=== PATIENT | female | born 1985 | race Asian ===

== ENCOUNTER 2018-01-09 22:30 | Inpatient (IN) | payer OTHER ==
--- NOTE | 2018-01-09 23:39 | HP ---
General Information - General Information Maternal Age: 32 Grav: 2 Para: 1 SAB: 0 IEA: 0 Estimated Due Date: 01/31/18 Determined By: LMP Gestational Age in Weeks and Days: 36 Weeks and 6 Days Maternal Blood Type and Rh: A Positive - Results this Serology/RPR Result: Non-Reactive Rubella Result: Immune HBsAg Result: Negative HIV Result: Negative GBS Culture Result: Negative Past Medical History Delivery History: Hx Uncomplicated Vaginal Delivery Pertinent Past Medical History: See Records - Non-immune to varicella Pertinent Past Surgical History: None Pertinent Family History: Non-Contributory - Antepartal Records Antepartal Records: Reviewed, Uncomplicated Review of Systems Constitutional: Uncomfortable - appears uncomfortable with contractions CV Complaint: No Respiratory: Shortness of Breath: No Genitourinary: No Leaking Fluid Musculoskeletal: Contractions Neurological: No Headache, No Visual Changes Movement: Normal Exam Allergies/Adverse Reactions: Allergies No Known Allergies Allergy (Verified 01/09/18 23:16) T 97.8; BP 108/79, P 88, R 20 - Measurements Height: 5 ft 4 in Weight: 141 lb Weight in lbs: 141 Body Mass Index (BMI): 24.2 Pre- Weight: 110 lb Weight Gained This : 31 lbs and 0 ozs - Exam Abdomen: No Upper Quadrant Pain Breast: Breast Exam Deferred CVA: No CVA Tenderness Extremities: No Edema Heart: Normal Rhythm/Heart Sounds HEENT: No Significant Findings Lungs: Clear Bilaterally Rectal: Rectal Exam Deferred Reflexes: DTR 2+ Thyroid: No Thyromegaly - Abdominal Exam Abdomen Exam: Non-Tender, Fundal Height Consistent with Dates - Ultrasound/Biophysical Profile Ultrasound Status: Not Done Targeted Exam Findings See L&D Outpatient Visit Provider Note for Findings: Yes Estimated Weight: 5.5-6# Cervical Exam: 4cm Effacement: 90% Station: -1 Presenting Part: Vertex Membrane Status: Bulging Bleeding/Discharge: Bloody Show EFM Findings - External Monitor Findings Baseline Heart Rate: 140 External Monitor Findings: Accelerations Present, No Pattern of Variable or Late Decelerations, Variability Moderate, Baseline Stable Contractions: Regular - 5-6 minutes, Moderate, 45-90 Seconds Assessment/Plan - Reason for Visit Reason for Visit: Pt c/o painful uterine contractions - Obstetrical Risk Factors Obstetrical Risk Factors: - 36 6/7 - Plan Plan: Observe, Early Labor, IV Hydration - Date/Time of Admission Date of Admission: 01/09/18 Time of Admission: 23:45
[2018-01-09 23:49] LABS: ABS Basophils 0 10^3/ul (0-0.2); ABS Eosinophils 0.1 10^3/ul (0-0.6); ABS Lymphocytes 1.6 10^3/ul (1.0-4.8); ABS Monocytes 0.9 10^3/ul (0-0.8); ABS Neutrophils 6.3 10^3/ul (1.5-7.7); ABS Nucleated RBC 0 10^3/ul; Eosinophil % 0.9 % (0-6); Hematocrit 33 % (35-47); Mean Corpuscular HGB Conc 34 g/dl (31-36); Mean Corpuscular Hemoglobin 30 pg (27-31); Mean Corpuscular Volume 89 fL (80-97); Mean Platelet Volume 8.3 um3 (7.4-10.4); Nucleated Red Blood Cells % 0; Platelet Count 270 10^3/ul (150-450); Red Blood Count 3.69 10^6/ul (4.0-5.4); Red Cell Distribution Width 13 % (10.5-15); White Blood Count 8.9 10^3/ul (3.5-10.8)
[2018-01-10] MEDS ORDERED: OBEPIDURAL* 0 ML EPIDURAL ONE (00:35)
[2018-01-10] MEDS ORDERED: fentaNYL* 50 MCG/ML 2 ML VIAL (100 MCG VIAL) ONE (00:41)
[2018-01-10] MEDS ORDERED: OBEPIDURAL* 250 ML EPIDURAL ONE (01:07)
[2018-01-10] MEDS ORDERED: Sodium Citrate/Citric Acid* 15 ML UDC PO PRN (01:19)
[2018-01-10] MEDS ORDERED: Phenylephrine IV* 40 MCG/ML 10 ML SYRINGE IV PUSH PRN ×2 (01:19)
[2018-01-10] MEDS ORDERED: Famotidine TAB* 20 MG PO PRN (01:19)
[2018-01-10] MEDS ORDERED: OBEPIDURAL* 250 ML EPIDURAL SCH (02:00)
[2018-01-10] MEDS ORDERED: Oxytocin in LR* 0 UNITS/0 ML BAG IVPB ONE (05:48)
[2018-01-10] MEDS ORDERED: Glycerin ADULT SUPP PR PRN (07:47)
[2018-01-10] MEDS ORDERED: Dibucaine 1% 28.35 GM TUBE PR PRN (07:47)
[2018-01-10] MEDS ORDERED: Witch Hazel PAD* JAR TOPICAL PRN (07:47)
[2018-01-10] MEDS ORDERED: Acetaminophen TAB* 325 MG PO PRN (07:47)
[2018-01-10] MEDS: Ibuprofen TAB* 600 MG PO PRN ×3 (08:22→21:07)
[2018-01-10] MEDS: Docusate CAP* 100 MG PO SCH ×3 (08:22→21:07)
[2018-01-10] MEDS ORDERED: Simethicone TAB* 80 MG TAB.CHEW PO SCH (08:30)
[2018-01-11] MEDS: Ibuprofen TAB* 600 MG PO PRN ×3 (04:15→17:29)
[2018-01-11 06:14] LABS: ABS Basophils 0 10^3/ul (0-0.2); ABS Eosinophils 0.1 10^3/ul (0-0.6); ABS Lymphocytes 1.7 10^3/ul (1.0-4.8); ABS Neutrophils 6.9 10^3/ul (1.5-7.7); ABS Nucleated RBC 0 10^3/ul; Eosinophil % 1.4 % (0-6); Hematocrit 29 % (35-47); Hemoglobin 10.1 g/dl (12.0-16.0); Lymphocyte % 17.4 % (25-47); Mean Corpuscular HGB Conc 35 g/dl (31-36); Mean Corpuscular Hemoglobin 31 pg (27-31); Mean Corpuscular Volume 88 fL (80-97); Mean Platelet Volume 8.9 um3 (7.4-10.4); Nucleated Red Blood Cells % 0; Platelet Count 218 10^3/ul (150-450); Red Blood Count 3.31 10^6/ul (4.0-5.4); Red Cell Distribution Width 13 % (10.5-15); White Blood Count 9.7 10^3/ul (3.5-10.8)
[2018-01-11] MEDS: Docusate CAP* 100 MG PO SCH ×3 (08:09→19:52)
[2018-01-11] MEDS: Ferrous Gluconate TAB* 324 MG TAB PO SCH ×2 (08:09→19:52)
[2018-01-11] MEDS ORDERED: Varicella Virus Vaccine Live* 0.5 ML VIAL SUBCUT ONE (09:00)
[2018-01-11] MEDS ORDERED: Tetan/Diph/Pertus SYR(Tdap)* 0.5 ML SYR(BOOSTRIX) use SYR IM ONE (09:00)
[2018-01-12] MEDS: Ibuprofen TAB* 600 MG PO PRN ×2 (00:15→07:54)
[2018-01-12 07:53] VITALS: BP 108/75
[2018-01-12] MEDS: Docusate CAP* 100 MG PO SCH (07:54)
[2018-01-12] MEDS: Ferrous Gluconate TAB* 324 MG TAB PO SCH (07:54)
== END 2018-01-12 12:20 | disposition home or self-care (01) | DRG 560 ==
LOC: MCHOBOUT 22:30 → MCHOB 23:25
PROVIDERS: ADMIT Midwife; ATTEND Midwife
PROC: 10E0XZZ Delivery of Products of Conception, External Approach (ICD-10-PCS; principal; 2018-01-10)
PROC: 0HQ9XZZ Repair Perineum Skin, External Approach (ICD-10-PCS; 2018-01-10)
DX: O60.14X0 Preterm labor third trimester with preterm delivery third trimester, not applicable or unspecified (principal); O70.0 First degree perineal laceration during delivery; O90.81 Anemia of the puerperium; D64.9 Anemia, unspecified; Z3A.37 37 weeks gestation of pregnancy; Z37.0 Single live birth
CPT/HCPCS: 36415; 85025; 86850; 86900; 86901; A9270-GY; J3010